=== PATIENT | female | born 2000 | race Caucasian/White ===

== ENCOUNTER 2022-04-27 08:00 | Outpatient (RCR) | payer BC, SELFPAY ==
--- NOTE | 2021-10-27 14:57 | URNOTE ---
Received request for prior auth for Xolair. This has been approved, Xolair 300mg sq every 4 weeks (60units per month) for 1 year. 10/23/2021-
[2021-10-30 10:33] VITALS: BP 120/78; PULSE 99; RESP 16; TEMP 36.4; O2SAT 98
[2021-10-30] MEDS: OMALIZUMAB 150 MG PT OWN SUBCUT (10:50)
[2021-11-27 11:22] VITALS: BP 114/70; PULSE 90; RESP 16; TEMP 36.4; O2SAT 97
[2021-11-27] MEDS: OMALIZUMAB 150 MG PT OWN SUBCUT (11:35)
--- NOTE | 2021-12-18 09:37 | URNOTE ---
Addendum entered by Arpil Parikh RN 03/19/22 13:12: Per Kel[place] at [facility], this can be buy and bill. He also confirmed that this is for 300mg sq every 4 weeks 12/17/2021-01/20/2099, indefinitly. Call ref #[id number], Auth #[id number] Original Note: Received request for prior auth for Xolair (J2357). Per [facility] this has been approved, 300mg (60 units) every 4 weeks, 12/17/2021-02/07/2099. Auth #[id number]
[2021-12-26] MEDS: OMALIZUMAB 150 MG PT OWN SUBCUT (16:04)
--- NOTE | 2021-12-30 12:45 | ONC.NURNOTE ---
Addendum entered by Angelita Watson, RN 03/19/22 12:58: Because of the difficulty ordering medication from [facility], [facility] reached out to UR to determine if patient can do buy and bill. When UR contacted insurance, they said that patient was inactive. Today patients father called office and let us know that we have the most up to date policy number listed. He said to call him if they continue to deny this, as has been effective since 11/08/2021. Lj: [phone] Original Note: The following questions were discussed with UR: 1. PA approved for 300mg, patient only receiving 150mg - is this a problem? No this is not, this is what was approved last time as well. 2. Authorization goes through 2098, is this correct? Yes 3. Patient previously received medication through [facility], does this still need to occur? Unsure. Station Attendant called patient and she notes that she had it sent through [facility] last month in [place]. Station Attendant then called [facility] at [phone] and they note that a PA is needed. As we are not the ordering provider, they were instructed to let the ordering provider know as we would not be able to accurately answer the required questions. Nursing then called patient to give her an update on her status.
[2022-03-27 09:16] VITALS: BP 107/69; RESP 16; TEMP 35.7; O2SAT 96
[2022-03-27] MEDS: OMALIZUMAB 150 MG/ML SYRINGE SUBCUT (09:29)
[2022-04-27 08:02] VITALS: BP 117/74; PULSE 96; RESP 16; TEMP 36.2; O2SAT 97
[2022-04-27] MEDS: OMALIZUMAB 150 MG/ML SYRINGE SUBCUT (08:08)
--- NOTE | 2022-04-27 08:31 | PC.NURSE ---
Patient aware that new orders are needed prior to next injection. Unable to set up next appointment until those orders are obtained. Patient verbally understood and is working with her MD at home in [place] to get these.
== END 2022-04-28 23:59 | disposition home or self-care (01) ==
LOC: CCIC 08:00
PROVIDERS: Visit Provider Clinical Nurse Specialist
DX: L50.0 Allergic urticaria (principal)
CPT/HCPCS: 96372; 96401; J2357

== ENCOUNTER 2022-12-02 08:30 | Outpatient (RCR) | payer BC, SELFPAY ==
--- NOTE | 2022-05-22 15:59 | ONC.NURNOTE ---
placed a call to pts MD in [place] for new order per pts request.
[2022-06-15 15:41] VITALS: BP 131/78; PULSE 88; RESP 18; TEMP 37.3; O2SAT 97
[2022-06-15] MEDS: OMALIZUMAB 150 MG/ML SYRINGE SUBCUT (15:50)
[2022-07-22 10:52] VITALS: BP 125/84; PULSE 74; RESP 16; TEMP 36.4; O2SAT 100
[2022-07-22] MEDS: OMALIZUMAB 150 MG/ML SYRINGE SUBCUT (11:02)
[2022-08-28 09:14] VITALS: BP 110/77; PULSE 92; RESP 16; TEMP 35.7; O2SAT 98
[2022-08-28] MEDS: OMALIZUMAB 150 MG/ML SYRINGE SUBCUT (09:31)
[2022-09-30 13:20] VITALS: BP 112/70; PULSE 89; RESP 16; TEMP 36.4; O2SAT 96
[2022-09-30] MEDS: OMALIZUMAB 150 MG/ML SYRINGE SUBCUT (13:33)
[2022-10-28 13:57] VITALS: BP 117/78; PULSE 94; RESP 16; TEMP 36.3; O2SAT 97
[2022-10-28] MEDS: OMALIZUMAB 150 MG/ML SYRINGE SUBCUT (14:33)
[2022-12-02 08:40] VITALS: BP 128/78; PULSE 95; RESP 16; TEMP 36.2; O2SAT 96
[2022-12-02] MEDS: OMALIZUMAB 150 MG/ML SYRINGE SUBCUT (11:00)
== END 2022-12-12 23:59 | disposition home or self-care (01) ==
LOC: CCIC 08:30
PROVIDERS: Visit Provider Clinical Nurse Specialist
DX: L50.1 Idiopathic urticaria (principal)
CPT/HCPCS: 96372; J2357

== ENCOUNTER 2023-06-25 13:00 | Outpatient (RCR) | payer BC, SELFPAY ==
--- NOTE | 2022-12-24 14:00 | URNOTE ---
Per Thaddeus Bradford at [facility], authorization for xolair (J2357) is valid with no changes 12/17/2021-02/07/2099. Auth [id number] Call ref #[id number]
[2022-12-30 08:48] VITALS: BP 127/84; PULSE 102; RESP 16; TEMP 36.2; O2SAT 96
[2022-12-30] MEDS: OMALIZUMAB 150 MG/ML SYRINGE SUBCUT (08:56)
[2023-01-28 08:28] VITALS: BP 121/76; PULSE 98; RESP 17; TEMP 36.5; O2SAT 99
[2023-01-28] MEDS: OMALIZUMAB 150 MG/ML SYRINGE SUBCUT (08:38)
[2023-02-26 13:00] VITALS: BP 128/80; PULSE 83; RESP 16; TEMP 36.1; O2SAT 97
[2023-02-26] MEDS: OMALIZUMAB 150 MG/ML SYRINGE SUBCUT (13:30)
[2023-03-26 11:11] VITALS: BP 114/76; PULSE 109; RESP 16; TEMP 35.5; O2SAT 96
[2023-03-26] MEDS: OMALIZUMAB 150 MG/ML SYRINGE SUBCUT (11:32)
[2023-04-26 14:18] VITALS: BP 115/74; PULSE 94; RESP 16; TEMP 35.2; O2SAT 97
[2023-04-26] MEDS: OMALIZUMAB 150 MG/ML SYRINGE SUBCUT (14:26)
--- NOTE | 2023-05-17 13:43 | URNOTE ---
Prior auth for Zolair (J2357) has been approved 300mg every 4 weeks, 05/14/2023-02/07/2099. Ref #[id number]
--- NOTE | 2023-05-19 15:18 | ONC.NURNOTE ---
Called [facility] to get lab results from the appointment on 05/10. Demi from this allergy clinic stated the results should be released on 05/20 and she will fax them once she gets them. Left message for patient to call us back to schedule next injection.
[2023-05-28 12:00] VITALS: BP 118/76; PULSE 98; RESP 14; TEMP 36.3; O2SAT 97
[2023-05-28] MEDS: OMALIZUMAB 150 MG/ML SYRINGE 300 MG SUBCUT (12:14)
[2023-06-25 13:20] VITALS: BP 131/69; PULSE 95; RESP 16; TEMP 36.1; O2SAT 98
[2023-06-25] MEDS: OMALIZUMAB 150 MG/ML SYRINGE 300 MG SUBCUT (13:29)
== END 2023-06-28 23:59 | disposition home or self-care (01) ==
LOC: CCIC 13:00
PROVIDERS: Visit Provider Clinical Nurse Specialist
DX: L50.1 Idiopathic urticaria (principal)
CPT/HCPCS: 96372; J2357

== ENCOUNTER 2023-12-28 10:00 | Outpatient (RCR) | payer BC, SELFPAY ==
[2023-07-23 13:15] VITALS: BP 123/79; PULSE 86; RESP 16; TEMP 36.6; O2SAT 94
[2023-07-23] MEDS: OMALIZUMAB 150 MG/ML SYRINGE 300 MG SUBCUT (13:26)
[2023-08-23] MEDS: OMALIZUMAB 150 MG/ML SYRINGE 300 MG SUBCUT (14:22)
[2023-09-28 11:18] VITALS: BP 124/74; PULSE 89; RESP 16; TEMP 36.2; O2SAT 99
[2023-09-28] MEDS: OMALIZUMAB 150 MG/ML SYRINGE 300 MG SUBCUT (11:32)
[2023-10-29 08:58] VITALS: BP 110/76; PULSE 84; RESP 16; TEMP 36.3; O2SAT 98
[2023-10-29] MEDS: OMALIZUMAB 150 MG/ML SYRINGE 300 MG SUBCUT (09:10)
[2023-11-30 09:57] VITALS: BP 125/79; PULSE 84; RESP 16; TEMP 36.2; O2SAT 97
[2023-11-30] MEDS: OMALIZUMAB 150 MG/ML SYRINGE 300 MG SUBCUT (10:15)
[2023-12-28 09:55] VITALS: BP 119/78; PULSE 85; RESP 16; TEMP 36.4; O2SAT 98
[2023-12-28] MEDS: OMALIZUMAB 150 MG/ML SYRINGE 300 MG SUBCUT (10:06)
== END 2024-01-19 23:59 | disposition home or self-care (01) ==
LOC: CCIC 10:00
PROVIDERS: Visit Provider Clinical Nurse Specialist
DX: L50.1 Idiopathic urticaria (principal)
CPT/HCPCS: 96372; J2357

== ENCOUNTER 2024-07-19 14:30 | Outpatient (RCR) | payer BC, SELFPAY ==
[2024-01-25 11:42] VITALS: BP 145/82; PULSE 100; RESP 16; TEMP 36.6; O2SAT 98
[2024-01-25] MEDS: OMALIZUMAB 150 MG/ML SYRINGE 300 MG SUBCUT (12:02)
[2024-02-22] MEDS: OMALIZUMAB 150 MG/ML SYRINGE 300 MG SUBCUT (11:22)
[2024-02-22 11:26] VITALS: BP 116/77; PULSE 99; RESP 16; TEMP 36.9; O2SAT 98
[2024-03-21 10:20] VITALS: BP 118/78; PULSE 117; RESP 18; TEMP 36.1; O2SAT 99
[2024-03-21] MEDS: OMALIZUMAB 150 MG/ML SYRINGE 300 MG SUBCUT (10:52)
[2024-04-18 11:19] VITALS: BP 112/71; PULSE 90; RESP 16; TEMP 36.3; O2SAT 98
[2024-04-18] MEDS: OMALIZUMAB 150 MG/ML SYRINGE 300 MG SUBCUT (11:40)
--- NOTE | 2024-05-09 12:15 | URNOTE ---
Verified with [facility] the current auth is still valid for Xolair (J2357) for 300mg every 4 weeks. 05/14/2023-02/07/2099
[2024-05-18 10:59] VITALS: BP 121/83; PULSE 85; RESP 18; TEMP 35.9; O2SAT 97
[2024-05-18] MEDS: OMALIZUMAB SUBCUT (11:29)
[2024-06-16 11:26] VITALS: BP 108/71; PULSE 96; RESP 20; TEMP 37; O2SAT 100
[2024-06-16] MEDS: OMALIZUMAB SUBCUT (11:35)
[2024-07-19 14:36] VITALS: BP 117/76; PULSE 88; RESP 18; TEMP 36.8; O2SAT 97
[2024-07-19] MEDS: OMALIZUMAB SUBCUT (15:13)
== END 2024-07-23 23:59 | disposition home or self-care (01) ==
LOC: CCIC 14:30
PROVIDERS: Visit Provider Clinical Nurse Specialist
DX: L50.1 Idiopathic urticaria (principal)
CPT/HCPCS: 96372; J2357